=== PATIENT | male | born 1970 | race Caucasian/White ===

== ENCOUNTER 2024-12-17 15:19 | Observation (INO) | payer BC ==
[2024-12-17 15:58] LABS: #Basophils 0.03 10x3/uL (0.0-0.2); #Eosinophils 0.06 10x3/uL (0.0-0.5); #Monocytes 0.60 10x3/uL (0.0-1.1); #Neutrophils 5.94 10x3/uL (1.5-8.4); %Basophils 0.4 % (0.0-2.0); %Eosinophils 0.7 % (0.0-6.0); %Lymphocytes 17.9 % (18.0-47.0); %Monocytes 7.4 % (0.0-10.0); %Neutrophils 73.5 % (40.0-75.0); Hematocrit 43.3 % (38.8-50.0); Hemoglobin 14.9 g/dL (13.5-17.5); Mean Corpuscular Hemoglobin 29.8 pg (27.0-33.0); Mean Corpuscular Volume 86.6 fL (81.2-95.1); Platelet Count 240 10x3/uL (150-450); Red Blood Cell (RBC) Count 5.00 10x6/uL (4.32-5.72); White Blood Cell (WBC) Count 8.09 10x3/uL (3.5-10.5)
[2024-12-17] MEDS ORDERED: Aspirin Chewable 81 MG TAB ONE (16:06)
[2024-12-17] MEDS ORDERED: Nitroglycerin 0.4 MG TAB 1 EACH ONE (16:06)
[2024-12-17 16:24] LABS: ALT (SGPT) 15 U/L (Less than 45); AST (SGOT) 22 U/L (11-34); Albumin 4.4 g/dL (3.1-4.5); Alkaline Phosphatase 67 U/L (40-110); Anion Gap 14 mmol/L (10-20); BUN (Urea Nitrogen) 18 mg/dL (8.4-25.7); Bilirubin, Total 0.5 mg/dL (0.3-1.2); Calc. Creatinine Clearance 0 mL/min (70-130); Calcium 9.0 mg/dL (7.8-10.44); Carbon Dioxide 22 mmol/L (22-29); Chloride 105 mmol/L (98-107); Globulin 3.1 g/dL (2.4-3.5); Glucose 142 mg/dL (70-105); Magnesium 1.9 mg/dL (1.6-2.6); Potassium 3.3 mmol/L (3.5-5.1); Sodium 138 mmol/L (136-145)
[2024-12-17 16:27] LABS: Troponin I 0.022 ng/mL (< 0.028)
[2024-12-17 18:00] LABS: Troponin I 0.032 ng/mL (< 0.028)
[2024-12-17] MEDS ORDERED: Nitroglycerin 0.4 MG TAB (25 Tab Bottle) SL PRN (18:48)
[2024-12-17] MEDS ORDERED: Melatonin 3 MG TAB PO PRN (18:50)
[2024-12-17] MEDS ORDERED: Calcium Carbonate 500 MG ChewTAB PO PRN (18:50)
[2024-12-17] MEDS ORDERED: Bisacodyl 10 MG SUPP PR PRN (18:50)
[2024-12-17] MEDS ORDERED: Ondansetron PF 4 MG/2 ML Vial IVP PRN (18:50)
[2024-12-17] MEDS ORDERED: Acetaminophen 325 MG TAB PO PRN (18:50)
[2024-12-17] MEDS ORDERED: Senokot S 8.6-50 MG TAB PO PRN (18:50)
[2024-12-17] MEDS ORDERED: Glucagon 1 MG/ML KIT IM PRN (19:42)
[2024-12-17] MEDS ORDERED: Dextrose 50% Abboject 50 ML SYRINGE SLOW IVP PRN (19:42)
[2024-12-17 21:06] LABS: Troponin I 0.048 ng/mL (< 0.028)
[2024-12-17 22:25] VITALS: BMI 34.4
[2024-12-17] MEDS: Lisinopril 20 MG TAB PO SCH (22:54)
[2024-12-17] MEDS: Enoxaparin 40 MG (0.4 mL) SYRINGE SC SCH (22:55)
[2024-12-18 00:54] LABS: Troponin I 0.048 ng/mL (< 0.028)
[2024-12-18 04:05] LABS: #Basophils 0.03 10x3/uL (0.0-0.2); #Eosinophils 0.23 10x3/uL (0.0-0.5); #Monocytes 0.55 10x3/uL (0.0-1.1); #Neutrophils 2.98 10x3/uL (1.5-8.4); %Basophils 0.5 % (0.0-2.0); %Eosinophils 3.7 % (0.0-6.0); %Lymphocytes 38.3 % (18.0-47.0); %Monocytes 8.9 % (0.0-10.0); %Neutrophils 48.4 % (40.0-75.0); Hematocrit 40.1 % (38.8-50.0); Hemoglobin 13.3 g/dL (13.5-17.5); Mean Corpuscular Hemoglobin 29.4 pg (27.0-33.0); Mean Corpuscular Volume 88.7 fL (81.2-95.1); Platelet Count 202 10x3/uL (150-450); Red Blood Cell (RBC) Count 4.52 10x6/uL (4.32-5.72); White Blood Cell (WBC) Count 6.16 10x3/uL (3.5-10.5)
[2024-12-18 04:23] LABS: Anion Gap 11 mmol/L (10-20); BUN (Urea Nitrogen) 14 mg/dL (8.4-25.7); Calc. Creatinine Clearance 176 mL/min (70-130); Calcium 8.5 mg/dL (7.8-10.44); Carbon Dioxide 26 mmol/L (22-29); Cardiac Risk 5.2 (Less than 4.5); Chloride 107 mmol/L (98-107); Cholesterol 192 mg/dl (< 200 Desired); Glucose 87 mg/dL (70-105); HDL Cholesterol 37 mg/dL (>60 Neg Risk); LDL Cholesterol, Calculated 140 mg/dL; Magnesium 2.1 mg/dL (1.6-2.6); Potassium 3.5 mmol/L (3.5-5.1); Sodium 140 mmol/L (136-145); Triglycerides 74 mg/dL (Less than 150)
[2024-12-18 04:30] LABS: Troponin I 0.047 ng/mL (< 0.028)
[2024-12-18] MEDS: Aspirin Chewable 81 MG TAB PO SCH (09:26)
[2024-12-18] MEDS: Enoxaparin 40 MG (0.4 mL) SYRINGE SC SCH (09:26)
[2024-12-18] MEDS: Lisinopril 20 MG TAB PO SCH (09:26)
[2024-12-18 12:04] VITALS: BP 149/86; TEMP 97.8
== END 2024-12-18 15:01 | disposition home or self-care (01) ==
LOC: CSHERS 15:19 → CSHERHOLD 18:47 → CSHTELE 22:10
PROVIDERS: ADMIT Internal Medicine; ATTEND Internal Medicine
PROC: B24BZZZ Ultrasonography of Heart with Aorta (ICD-10-PCS; principal; 2024-12-18)
DX: I16.0 Hypertensive urgency (principal); R79.89 Other specified abnormal findings of blood chemistry; I10 Essential (primary) hypertension; E11.9 Type 2 diabetes mellitus without complications; E87.6 Hypokalemia; E66.811 Obesity, class 1; Z68.34 Body mass index [BMI] 34.0-34.9, adult; Z79.899 Other long term (current) drug therapy
CPT/HCPCS: 36415; 36416; 71045; 80048; 80053; 80061; 83036; 83735; 83880; 84484; 85025; 93005; 93010; 93306; 94760; 96372; G0378; J1650